=== PATIENT | female | born 1945 | race Caucasian/White ===

== ENCOUNTER → 2024-01-25 | Outpatient (CLI) | payer MEDICARE, BC ==
--- NOTE | 2024-01-27 11:57 | MR ---
EXAMINATION TYPE: MR abdomen wo/w con DATE OF EXAM: 01/25/2024 4:26 PM CLINICAL INDICATION:Female, 78 years old with history of K76.9 LIVER DISEASE, UNSPECIFIED; PHH, No pr ior, Ct done at [place] showed spots on liver, no symptoms COMPARISON: None TECHNIQUE: Multiplanar multi-sequence imaging was performed without contrast. Post contrast imaging was performed. Post IV contrast subtraction images were also submitted for review. IV Contrast: 5.5 cc Gadavist FINDINGS: LOWER CHEST: No gross irregularity. ABDOMEN Liver: Scattered high T2 signal lesions are seen throughout the liver there are innumerable greater t nur 200 measuring 1-3 mm. Additional high T2 signal cysts which are high T2 low T1 signal. Postcontra st imaging does not demonstrate suspicious arterial phase enhancement with washout. Scattered periphe ral wedge-shaped enhancement is present which becomes isosignal to background liver parenchyma on del ayed imaging most compatible with vascular shunt phenomenon. Gallbladder and Bile ducts: No evidence for biliary stricture or evidence of choledocholithiasis. Gal lbladder is present with biliary dilation of the extrahepatic and central intrahepatic biliary system . The common bile duct measures up to 9 mm in the common hepatic duct measures up to 16 mm. Pancreas: Mildly dilated duct measuring up to 5 mm. No evidence for solid mass. Spleen: Normal for size. Adrenal glands: Unremarkable. Kidneys: No evidence for obstructive uropathy. No suspicious renal masses. Few scattered high T2 sign al nonenhancing subcentimeter cysts. Stomach and Bowel: No evidence for bowel wall thickening or evidence for obstruction. Retroperitoneum/Peritoneum: No evidence of pneumoperitoneum or free fluid. Vasculature: No aortic aneurysm. Musculoskeletal: The osseous structures appear intact. Lymph Nodes: No gross evidence for lymphadenopathy. Abdominal wall: Unremarkable. IMPRESSION: 1. Scattered high T2 signal lesions anomaly 1-3 mm throughout the liver suggestive of multiple bilia ry hamartomas and/or and larger high T2 signal probable simple and mildly complex cysts. No suspiciou s liver lesion/observation definitively visualized. 2. Dilated extrahepatic and central intrahepatic biliary system with mild prominence of 3. Main pancreatic duct. Correlate for ampullary lesion consider ERCP.
== END | disposition home or self-care (01) ==
LOC: RADMRIMAIN 11:18
PROVIDERS: ATTEND Family Medicine
DX: K76.9 Liver disease, unspecified (principal)
CPT/HCPCS: 74183; A9585